=== PATIENT | female | born 1945 | race Caucasian/White ===

== ENCOUNTER → 2017-09-02 15:34 | Outpatient (CLI) | payer MEDICARE | END | disposition home or self-care (01) | LOC: D.MAMMO 11:00 | DX: Z12.31 Encounter for screening mammogram for malignant neoplasm of breast (principal); M81.0 Age-related osteoporosis without current pathological fracture ==

== ENCOUNTER 2017-12-18 23:23 | Emergency (ER) | payer MEDICARE | END 2017-12-19 00:52 | disposition home or self-care (01) | LOC: D.ER 23:23 | DX: S39.012A Strain of muscle, fascia and tendon of lower back, initial encounter (principal); W01.0XXA Fall on same level from slipping, tripping and stumbling without subsequent striking against object, initial encounter; Y93.89 Activity, other specified; Y92.019 Unspecified place in single-family (private) house as the place of occurrence of the external cause; G40.909 Epilepsy, unspecified, not intractable, without status epilepticus ==

== ENCOUNTER 2017-12-20 16:01 | Emergency (ER) | payer MEDICARE ==
[2017-12-20 16:31] LABS: BASOPHILS 0.2 % (0-2); HEMATOCRIT 32.9 % (36.0-48.0); HEMOGLOBIN 11.6 g/dL (12-16); IMMATURE GRANULOCYTES 0.2 % (0-5); LYMPHOCYTES 18.1 % (15-50); MCH 32.3 pg (26.0-34.0); MCHC 35.3 g/dL (31.0-37.0); MCV 91.6 fL (80.0-100.0); MEAN PLATELET VOLUME 8.9 fL (7.4-10.4); MONOCYTES 10.4 % (2-11); NEUTROPHILS 67.1 % (40-80); PLATELET COUNT 192 10x3/uL (130-400); RBC 3.59 10x6/uL (4.00-5.40); RDW 12.7 % (11.5-14.5); WBC 5.2 10x3/uL (4.8-10.8)
[2017-12-20 16:49] LABS: ALKALINE PHOSPHATASE 101 U/L (46-116); ALT (SGPT) 18 U/L (10-68); CALC OSMOLALITY 268 mosm/kg (275-300); CALCIUM 8.8 mg/dL (8.5-10.1); CARBON DIOXIDE 25.4 mmol/L (21.0-32.0); CHLORIDE - SERUM 100 mmol/L (98-107); CREATININE - SERUM 0.9 mg/dL (0.6-1.3); GLUCOSE 91 mg/dL (74-106); POTASSIUM - SERUM 4.1 mmol/L (3.5-5.1); PROTEIN - SERUM 7.1 g/dL (6.4-8.2); SODIUM 135 mmol/L (136-145); UREA NITROGEN 11 mg/dL (7-18); eGFR NON AFRICAN AMERICAN 65 mL/min (90-120)
[2017-12-20 17:01] LABS: CREATINE KINASE 82 UL (21-215); TROPONIN-I < 0.017 ng/mL (0.000-0.060)
== END 2017-12-20 18:10 | disposition home or self-care (01) ==
LOC: D.ER 16:01
PROVIDERS: Family Medicine
DX: R07.89 Other chest pain (principal); G40.909 Epilepsy, unspecified, not intractable, without status epilepticus

== ENCOUNTER → 2017-12-23 06:06 | Outpatient (CLI) | payer MEDICARE | END | disposition home or self-care (01) | LOC: D.MAMMO 06:06 | DX: R92.8 Other abnormal and inconclusive findings on diagnostic imaging of breast (principal) ==

== ENCOUNTER → 2018-03-03 08:15 | Outpatient (CLI) | payer MEDICARE ==
[~2018-03-03 08:15] MED LIST: CLARITIN 10 MG10 MG PO; KEPPRA500 MG; OMEPRAZOLE20 M1 PO; PHENOBARBITAL30 MG PO; SODIUM BICARBO325 MG; SYNTHROID25 MCG
== END | disposition home or self-care (01) ==
LOC: D.RAD 08:15
DX: R13.19 Other dysphagia (principal)

== ENCOUNTER 2018-04-23 13:50 | Emergency (ER) | payer MEDICARE ==
[~2018-04-23] VITALS: Ht 142.2 cm; Wt 46.8 kg
[2018-04-23 14:04] VITALS: Ht 142.2 cm; Wt 46.8 kg
[2018-04-23] MEDS ORDERED: PHENOBARBITAL30 MG PO (14:05)
[2018-04-23] MEDS ORDERED: KEPPRA500 MG (14:05)
[2018-04-23] MEDS ORDERED: OMEPRAZOLE20 M1 PO (14:06)
[2018-04-23] MEDS ORDERED: SYNTHROID25 MCG (14:06)
[2018-04-23] MEDS ORDERED: SODIUM BICARBO325 MG (14:06)
[2018-04-23] MEDS ORDERED: CLARITIN 10 MG10 MG PO (14:06)
[2018-04-23 15:21] LABS: BASOPHILS 0.5 % (0-2); EOSINOPHILS 4.7 % (0-7); HEMATOCRIT 36.6 % (36.0-48.0); HEMOGLOBIN 12.5 g/dL (12-16); IMMATURE GRANULOCYTES 0.3 % (0-5); LYMPHOCYTES 26.3 % (15-50); MCH 31.5 pg (26.0-34.0); MCHC 34.2 g/dL (31.0-37.0); MCV 92.2 fL (80.0-100.0); MEAN PLATELET VOLUME 8.7 fL (7.4-10.4); MONOCYTES 10.5 % (2-11); NEUTROPHILS 57.7 % (40-80); RBC 3.97 10x6/uL (4.00-5.40); RDW 13.6 % (11.5-14.5); WBC 6.4 10x3/uL (4.8-10.8)
[2018-04-23 15:27] LABS: PLATELET COUNT 293 10x3/uL (130-400)
[2018-04-23 15:31] LABS: ALKALINE PHOSPHATASE 98 U/L (46-116); ALT (SGPT) 21 U/L (10-68); CALC OSMOLALITY 262 mosm/kg (275-300); CALCIUM 8.3 mg/dL (8.5-10.1); CARBON DIOXIDE 28.9 mmol/L (21.0-32.0); CHLORIDE - SERUM 97 mmol/L (98-107); CREATININE - SERUM 0.7 mg/dL (0.6-1.3); POTASSIUM - SERUM 3.8 mmol/L (3.5-5.1); PROTEIN - SERUM 7.4 g/dL (6.4-8.2); SODIUM 133 mmol/L (136-145); UREA NITROGEN 9 mg/dL (7-18); eGFR NON AFRICAN AMERICAN 87 mL/min (90-120)
[2018-04-23 15:35] LABS: GLUCOSE 68 mg/dL (74-106)
[2018-04-23 16:24] VITALS: BP 122/72
[2018-04-23 16:27] LABS: APPEARANCE CLEAR (CLEAR); BILIRUBIN NEGATIVE (NEGATIVE); COLOR STRAW (YELLOW); GLUCOSE NEGATIVE (NEGATIVE); KETONE NEGATIVE (NEGATIVE); NITRITE POSITIVE (NEGATIVE); PROTEIN NEGATIVE (NEGATIVE); UROBILINOGEN NORMAL (NORMAL)
[2018-04-23 16:29] LABS: RED CELLS - URINE 0-5 /hpf (0-5)
[2018-04-23 16:30] LABS: BACTERIA MANY /hpf (NONE SEEN)
== END 2018-04-23 16:24 | disposition home or self-care (01) ==
LOC: D.ER 13:50
PROVIDERS: Emergency Medicine
DX: S00.93XA Contusion of unspecified part of head, initial encounter (principal); W18.30XA Fall on same level, unspecified, initial encounter; Y93.89 Activity, other specified; Y92.22 Religious institution as the place of occurrence of the external cause; G40.909 Epilepsy, unspecified, not intractable, without status epilepticus

== ENCOUNTER 2019-01-31 15:26 | Emergency (ER) | payer MEDICARE, MEDICAID ==
[~2019-01-31] VITALS: Ht 142.2 cm; Wt 45.0 kg
[2019-01-31 15:29] VITALS: Ht 142.2 cm; Wt 45.0 kg
[2019-01-31 15:55] LABS: BASOPHILS 0.2 % (0-2); EOSINOPHILS 1.1 % (0-7); HEMATOCRIT 36.7 % (36.0-48.0); HEMOGLOBIN 12.7 g/dL (12-16); IMMATURE GRANULOCYTES 1.5 % (0-5); LYMPHOCYTES 16.2 % (15-50); MCH 31.7 pg (26.0-34.0); MCHC 34.6 g/dL (31.0-37.0); MCV 91.5 fL (80.0-100.0); MEAN PLATELET VOLUME 8.7 fL (7.4-10.4); MONOCYTES 6.4 % (2-11); NEUTROPHILS 74.6 % (40-80); RBC 4.01 10x6/uL (4.00-5.40); RDW 13.4 % (11.5-14.5); WBC 8.2 10x3/uL (4.8-10.8)
[2019-01-31 15:56] LABS: PLATELET COUNT 223 10x3/uL (130-400)
[2019-01-31 16:18] LABS: ALBUMIN 3.1 g/dL (3.4-5.0); ALKALINE PHOSPHATASE 109 U/L (46-116); ALT (SGPT) 38 U/L (10-68); BILIRUBIN - TOTAL 0.25 mg/dL (0.2-1.3); CALC OSMOLALITY 272 mosm/kg (275-300); CALCIUM 8.1 mg/dL (8.5-10.1); CARBON DIOXIDE 28.4 mmol/L (21.0-32.0); CHLORIDE - SERUM 102 mmol/L (98-107); CREATININE - SERUM 0.8 mg/dL (0.6-1.3); GLUCOSE 98 mg/dL (74-106); POTASSIUM - SERUM 3.9 mmol/L (3.5-5.1); PROTEIN - SERUM 7.3 g/dL (6.4-8.2); SODIUM 137 mmol/L (136-145); UREA NITROGEN 11 mg/dL (7-18); eGFR NON AFRICAN AMERICAN 75 mL/min (90-120)
[2019-01-31 16:29] LABS: INR 1.13 (0.85-1.17)
[2019-01-31 16:30] LABS: CKMB 2.2 U/L (0.0-3.6); CREATINE KINASE 128 UL (21-215)
[2019-01-31 16:34] LABS: TROPONIN-I < 0.017 ng/mL (0.000-0.060)
[2019-01-31 19:43] VITALS: BP 138/68
[2019-02-06 10:49] VITALS: Ht 142.2 cm; Wt 45.0 kg
== END 2019-01-31 19:32 | disposition home or self-care (01) ==
LOC: D.ER 15:26
PROVIDERS: Family Medicine
DX: S22.039A Unspecified fracture of third thoracic vertebra, initial encounter for closed fracture (principal); S22.049A Unspecified fracture of fourth thoracic vertebra, initial encounter for closed fracture; W18.30XA Fall on same level, unspecified, initial encounter; Y92.511 Restaurant or cafe as the place of occurrence of the external cause

== ENCOUNTER 2019-02-02 17:55 | Inpatient (IN) | payer MEDICARE, MEDICAID ==
[~2019-02-02] VITALS: Ht 142.2 cm; Wt 52.3 kg
[2019-02-02 18:21] LABS: BASOPHILS 0.3 % (0-2); EOSINOPHILS 2.9 % (0-7); HEMOGLOBIN 12.7 g/dL (12-16); IMMATURE GRANULOCYTES 0.3 % (0-5); LYMPHOCYTES 10.6 % (15-50); MCH 31.8 pg (26.0-34.0); MCHC 35.3 g/dL (31.0-37.0); MEAN PLATELET VOLUME 9.6 fL (7.4-10.4); MONOCYTES 6.6 % (2-11); NEUTROPHILS 79.3 % (40-80); RDW 13.3 % (11.5-14.5); WBC 10.8 10x3/uL (4.8-10.8)
[2019-02-02 18:29] LABS: PLATELET COUNT 147 10x3/uL (130-400)
[2019-02-02 18:35] LABS: APPEARANCE CLEAR (CLEAR); COLOR DK YELLOW (YELLOW); GLUCOSE NEGATIVE (NEGATIVE); KETONE NEGATIVE (NEGATIVE); NITRITE POSITIVE (NEGATIVE); PROTEIN 1+ mg/dL (NEGATIVE)
[2019-02-02 18:36] LABS: BACTERIA MANY /hpf (NONE SEEN); BILIRUBIN NEGATIVE (NEGATIVE); EPITHELIAL CELLS 0-5 /hpf (0-5); RED CELLS - URINE 0-5 /hpf (0-5); UROBILINOGEN NORMAL (NORMAL); WHITE CELLS - URINE 25-50 /hpf (0-5)
[2019-02-02 18:49] LABS: APTT 29.5 SECONDS (22.8-39.4); INR 1.14 (0.85-1.17); PROTIME 14.1 SECONDS (11.6-15.0)
[2019-02-02 19:00] LABS: ALBUMIN 2.8 g/dL (3.4-5.0); ALKALINE PHOSPHATASE 92 U/L (46-116); ALT (SGPT) 35 U/L (10-68); BILIRUBIN - TOTAL 0.64 mg/dL (0.2-1.3); CALC OSMOLALITY 274 mosm/kg (275-300); CALCIUM 8.1 mg/dL (8.5-10.1); CARBON DIOXIDE 26.6 mmol/L (21.0-32.0); CHLORIDE - SERUM 101 mmol/L (98-107); CREATININE - SERUM 0.9 mg/dL (0.6-1.3); GLUCOSE 118 mg/dL (74-106); POTASSIUM - SERUM 4.3 mmol/L (3.5-5.1); PROTEIN - SERUM 7.2 g/dL (6.4-8.2); SODIUM 135 mmol/L (136-145); UREA NITROGEN 23 mg/dL (7-18); eGFR NON AFRICAN AMERICAN 65 mL/min (90-120)
[2019-02-02 19:12] LABS: CKMB 0.9 U/L (0.0-3.6); CREATINE KINASE 178 UL (21-215); PHENOBARBITAL 41.6 ug/mL (15.0-40.0); TROPONIN-I 0.054 ng/mL (0.000-0.060)
--- NOTE | 2019-02-02 21:30 | NUR ---
PT ARRIVED TO THE FLOOR. PT VERY LETHARGIC DOES NOT RESPOND TO VERBAL STIMULI. DOES RESPOND TO PAIN. NATHALIA ALARM PLACED. FALL PRECAUTIONS ON. WILL CONTINUE PLAN OF CARE. CALL LIGHT IN REACH. BED LOWERED AND LOCKED. BED RAILS UP X3.
[2019-02-02 23:33] VITALS: BP 93/52; BMI 23.6
--- NOTE | 2019-02-02 23:48 | NUR ---
RN NOTE: ADMISSION ASSESSMENT COMPLETE. PT TOO LETHARGIC TO ANSWER QUESTIONS AT THIS TIME... UNABLE TO DO SUICIDE SCREENING.
[2019-02-03 01:15] VITALS: BP 98/53
[2019-02-03 05:10] VITALS: BP 106/59
[2019-02-03 05:47] LABS: BASOPHILS 0.2 % (0-2); EOSINOPHILS 5.1 % (0-7); HEMATOCRIT 31.5 % (36.0-48.0); HEMOGLOBIN 10.6 g/dL (12-16); IMMATURE GRANULOCYTES 0.2 % (0-5); MCH 30.6 pg (26.0-34.0); MCHC 33.7 g/dL (31.0-37.0); MEAN PLATELET VOLUME 9.8 fL (7.4-10.4); MONOCYTES 9.6 % (2-11); NEUTROPHILS 69.9 % (40-80); PLATELET COUNT 138 10x3/uL (130-400); RBC 3.46 10x6/uL (4.00-5.40); RDW 13.4 % (11.5-14.5); WBC 8.1 10x3/uL (4.8-10.8)
[2019-02-03 06:03] LABS: ALBUMIN 2.3 g/dL (3.4-5.0); ALKALINE PHOSPHATASE 81 U/L (46-116); ALT (SGPT) 32 U/L (10-68); BILIRUBIN - TOTAL 0.52 mg/dL (0.2-1.3); CALC OSMOLALITY 273 mosm/kg (275-300); CALCIUM 7.3 mg/dL (8.5-10.1); CARBON DIOXIDE 25.5 mmol/L (21.0-32.0); CHLORIDE - SERUM 104 mmol/L (98-107); CREATININE - SERUM 0.7 mg/dL (0.6-1.3); GLUCOSE 97 mg/dL (74-106); MAGNESIUM - SERUM 1.9 mg/dL (1.8-2.4); POTASSIUM - SERUM 4.2 mmol/L (3.5-5.1); PROTEIN - SERUM 6.2 g/dL (6.4-8.2); SODIUM 136 mmol/L (136-145); UREA NITROGEN 18 mg/dL (7-18); eGFR NON AFRICAN AMERICAN 87 mL/min (90-120)
[2019-02-03 09:09] VITALS: BP 117/42
[2019-02-03 12:48] VITALS: BMI 23.5
[2019-02-03 13:16] VITALS: BP 196/46
[2019-02-03 14:13] LABS: % SATURATION 24 % (15-55); IRON 37 ug/dl (35-150); TOTAL IRON BIND CAPACITY 154 ug/dl (260-445); UNSAT IRON BIND CAPACITY 117 ug/dl (150-375)
[2019-02-03 16:43] VITALS: BP 110/62
[2019-02-03 19:56] VITALS: BP 110/53
--- NOTE | 2019-02-03 22:24 | NUR ---
PT ALERT AND ORIENTED. INCONTINENT OF BOWEL AND BLADDER. LINEN CHANGE PERFORMED. PT DENIES FURTHER NEEDS. LT AND RT AC IV'S THAT ARE SALINE LOCKED. RT WRIST PERIPHERAL PATENT. HAS CALL LIGHT IN HAND. DENIES FURTHER NEEDS AT THIS TIME.
[2019-02-04] VITALS: BP 111/58
[2019-02-04 04:54] VITALS: BP 116/64
[2019-02-04 06:29] LABS: BASOPHILS 0.2 % (0-2); EOSINOPHILS 2.3 % (0-7); HEMATOCRIT 32.1 % (36.0-48.0); HEMOGLOBIN 11.2 g/dL (12-16); IMMATURE GRANULOCYTES 0.3 % (0-5); MCH 31.5 pg (26.0-34.0); MCHC 34.9 g/dL (31.0-37.0); MCV 90.4 fL (80.0-100.0); MEAN PLATELET VOLUME 9.8 fL (7.4-10.4); MONOCYTES 8.9 % (2-11); NEUTROPHILS 77.3 % (40-80); PLATELET COUNT 145 10x3/uL (130-400); RBC 3.55 10x6/uL (4.00-5.40); RDW 13.2 % (11.5-14.5); WBC 9.2 10x3/uL (4.8-10.8)
[2019-02-04 07:01] LABS: ALBUMIN 2.1 g/dL (3.4-5.0); ALKALINE PHOSPHATASE 87 U/L (46-116); BILIRUBIN - TOTAL 0.63 mg/dL (0.2-1.3); CARBON DIOXIDE 20.4 mmol/L (21.0-32.0); CHLORIDE - SERUM 102 mmol/L (98-107); CREATININE - SERUM 0.6 mg/dL (0.6-1.3); GLUCOSE 104 mg/dL (74-106); MAGNESIUM - SERUM 1.8 mg/dL (1.8-2.4); POTASSIUM - SERUM 3.8 mmol/L (3.5-5.1); PROTEIN - SERUM 5.6 g/dL (6.4-8.2); SODIUM 134 mmol/L (136-145); eGFR NON AFRICAN AMERICAN > 90 mL/min (90-120)
[2019-02-04 07:02] LABS: ALT (SGPT) 64 U/L (10-68); CALC OSMOLALITY 266 mosm/kg (275-300); UREA NITROGEN 11 mg/dL (7-18)
[2019-02-04 07:47] VITALS: BP 92/62
--- NOTE | 2019-02-04 09:57 | NUR ---
ALERT AND ORIENTED X3. PATIENT IS ON FALL PRECAUTIONS AND CONTACT ISOLATION. MAX ASSSIT WITH TRANSFERS X1. O2 2L N/C. LUNGS CTA. DENIES ANY PAIN OR DISCOMFORT AT THIS TIME. ENCOURAGED TO USE CALL LIGHT FOR ASSIST.
[2019-02-04 13:06] VITALS: BP 103/60
[2019-02-04] MEDS ORDERED: SODIUM BICARBO650 MG PO (16:46)
[2019-02-04 17:10] VITALS: BP 122/62
[2019-02-04] MEDS ORDERED: KEPPRA250 MG PO (17:13)
[2019-02-04] MEDS ORDERED: PHENOBARBITAL97.2 MG PO (17:14)
[2019-02-04] MEDS ORDERED: SYNTHROID50 MCG PO (17:14)
--- NOTE | 2019-02-04 19:00 | NUR ---
PT IS ALERT AND ORIENTED X 2 . PT HAS INTERMITTENT CONFUSION. INCONTINENT AT TIMES BUT ASKS FOR BED ESPARZA SOMETIMES. RT AND LT AC IV BOTH SALINE LOCKED. LEFT WRIST IV THAT IS PATENT AND INFUSING NS WITH ABX. DENIES PAIN OR DISCOMFORT. FALL PRECAUTIONS AND CONTACT ISOLATION PRECAUTIONS BOTH IN PLACE. PATIENT DOES NOT APPEAR IN ANY DISTRESS. USES CALL LIGHT APPROPRIATELY AND VERBALIZES TO USE CALL LIGHT WHEN IN NEED OF ASSISTANCE. CONTINUE PLAN OF CARE.
[2019-02-04 20:32] VITALS: BP 123/69
[2019-02-05 01:42] VITALS: BP 122/64
--- NOTE | 2019-02-05 04:35 | NUR ---
I have reviewed this patient and I concur with the Shift Assessment completed by the Licensed Practical Nurse today this shift.
[2019-02-05 05:37] LABS: BASOPHILS 0.3 % (0-2); EOSINOPHILS 0.3 % (0-7); HEMATOCRIT 31.5 % (36.0-48.0); IMMATURE GRANULOCYTES 0.3 % (0-5); LYMPHOCYTES 4.6 % (15-50); MCH 31.3 pg (26.0-34.0); MCHC 34.9 g/dL (31.0-37.0); MCV 89.7 fL (80.0-100.0); MEAN PLATELET VOLUME 10.2 fL (7.4-10.4); MONOCYTES 7.8 % (2-11); NEUTROPHILS 86.7 % (40-80); PLATELET COUNT 191 10x3/uL (130-400); RBC 3.51 10x6/uL (4.00-5.40); RDW 13.3 % (11.5-14.5); WBC 11.7 10x3/uL (4.8-10.8)
[2019-02-05 06:09] LABS: ALBUMIN 2.2 g/dL (3.4-5.0); ALKALINE PHOSPHATASE 101 U/L (46-116); ALT (SGPT) 65 U/L (10-68); BILIRUBIN - TOTAL 1.02 mg/dL (0.2-1.3); CALC OSMOLALITY 274 mosm/kg (275-300); CALCIUM 7.6 mg/dL (8.5-10.1); CARBON DIOXIDE 21.2 mmol/L (21.0-32.0); CHLORIDE - SERUM 104 mmol/L (98-107); CREATININE - SERUM 0.7 mg/dL (0.6-1.3); GLUCOSE 112 mg/dL (74-106); MAGNESIUM - SERUM 1.8 mg/dL (1.8-2.4); POTASSIUM - SERUM 3.1 mmol/L (3.5-5.1); PROTEIN - SERUM 6.7 g/dL (6.4-8.2); SODIUM 138 mmol/L (136-145); UREA NITROGEN 7 mg/dL (7-18); eGFR NON AFRICAN AMERICAN 87 mL/min (90-120)
--- NOTE | 2019-02-05 06:34 | NUR ---
PT ATTEMPTING TO GET OUT OF BED SEVERAL TIMES IN NIGHT. DISORIENTED AND HAD TO REORIENT SEVERAL TIMES. ALL FALL PRECAUTIONS ARE IN PLACE. POTASSIUM LOW, TREATED PER PROTOCAL. CALL LIGHT IN HAND.
[2019-02-05 09:11] VITALS: BP 109/63
[2019-02-05 13:29] VITALS: BP 110/54
--- NOTE | 2019-02-05 15:43 | NUR ---
OT NOTE: PT UP IN CHAIR EATING. PT CONSUMED ONLY ABOUT 20% OF MEAL. PT IS ABLE TO FEED SELF, BUT REQUIRES ENCOURAGEMENT TO EAT JUST SMALL AMOUNT. STATES THAT SHE DOESNT WANT ANYMORE. BACK TO BED WITH MAX ASSIST FOR TRANSFER. MAX ASSIST WITH BED MOB PT HAD EPISODE OF DIARRHEA AND HAD TO BE CHANGED. MAX ASSIST TO REPOSITION IN BED. HANS OLIVER, OTR/L
--- NOTE | 2019-02-05 16:14 | MORECARE ---
CASE MANAGEMENT DISCHARGE SUMMARY PATIENT: JOYCE DEAN UNIT: [id number] ADM DATE: 02/02/19 AGE: 73 : 46 SEX: F ROOM/BED: D.2225 AUTHOR: MEAGHAN GARY PHYSICIAN: REFERRING PHYSICIAN: PETROS DUNHAM MD DATE OF SERVICE: 02/05/19 Discharge Plan Patient Name: JOYCE DEAN Facility: [facility]:[place] : 1945 Planned Disposition: Inpatient Rehab Anticipated Discharge Date: Discharge Date: Expected LOS: Initial Reviewer: [email or web address] Initial Review Date: 02/05/2019 Generated: 02/05/19 5:14 pm DCP- Discharge Planning Updated by [email or web address]: Brittaney Yu on 02/03/19 4:[address] Nurse reports frequent visitors from her presybeterian family, Roxann Witness today. Reportedly her presybeterian family and neighbors assist her and she ?? has no family. Patient was found down without air conditioning. Patient placed in temporary isolation until culture results return. DCP- Discharge Planning Updated by [email or web address]: Brittaney Yu on 02/03/19 4:[address] CM received CM consult for inpatient rehab. Patient with a temp of 102.7 pulse 96- 120, nasal oxygen increased to 4l/min from 1.5 liters as O2 sats fell this occurred this late afternoon. Reportedly the patient told MD she did not want rehab as she has a dog. Cultures pending. IV Levaquin q24hrs. Patient had 1 liter fld bolus. IVFS at 100/ cc/ hr then decrease to 75cc/hr. CM will f/u with referral. Patient Name: JOYCE DEAN Page [phone] at 1614 All edits/amendments must be made on the electronic document DICTATION DATE: 02/05/191613 ENAMEL MACHINE OPERATOR: JOSE 02/05/19 1614 RPT#: [id number] DC DATE: STATUS: ADM IN [facility] [address] [place] [address] END OF REPORT
--- NOTE | 2019-02-05 16:22 | MORECARE ---
CASE MANAGEMENT DISCHARGE SUMMARY PATIENT: JOYCE DEAN UNIT: [id number] ADM DATE: 02/02/19 AGE: 73 : 46 SEX: F ROOM/BED: D.2225 AUTHOR: COOKIE,DOC PHYSICIAN: REFERRING PHYSICIAN: PETROS DUNHAM MD DATE OF SERVICE: 02/05/19 Discharge Plan Patient Name: JOYCE DEAN Facility: [facility]:[place] : 1945 Planned Disposition: Inpatient Rehab Anticipated Discharge Date: Discharge Date: Expected LOS: Initial Reviewer: [email or web address] Initial Review Date: 02/05/2019 Generated: 02/05/19 5:22 pm DCP- Discharge Planning Updated by [email or web address]: Brittaney Yu on 02/03/19 4:[address] Nurse reports frequent visitors from her druze family, Roxann Booker today. Reportedly her druze family and neighbors assist her and she ?? has no family. Patient was found down without air conditioning. Patient placed in temporary isolation until culture results return. DCP- Discharge Planning Updated by [email or web address]: Brittaney Yu on 02/03/19 4:[address] CM received CM consult for inpatient rehab. Patient with a temp of 102.7 pulse 96- 120, nasal oxygen increased to 4l/min from 1.5 liters as O2 sats fell this occurred this late afternoon. Reportedly the patient told MD she did not want rehab as she has a dog. Cultures pending. IV Levaquin q24hrs. Patient had 1 liter fld bolus. IVFS at 100/ cc/ hr then decrease to 75cc/hr. CM will f/u with referral. DCPIA - Discharge Planning Initial Assessment Updated by [id number]: Melissa Moreno on 02/05/19 4:16 pm * Is the patient Alert and Oriented? Yes * How many steps to enter\exit or inside your home? 0/0 * PCP Dr. Flores Hirsch * [facility] [address] * Preadmission Environment Home Alone * ADLs Partial Dependent * Partial ADLs (Assistance needed) Ambulation * Equipment Walker * List name and contact numbers for known caregivers / representatives who currently or will assist patient after discharge: Best Kyle - Medical Directive - [phone] Kevin Everett - friend - [phone] Azam Carranza - [phone] Mechelle Palma - [phone] * Verbal permission to speak to the caregivers and representatives has been obtained from the patient. Yes * Community resources currently utilized None * Additional services required to return to the preadmission environment? Yes * Can the patient safely return to the preadmission environment? No * Has this patient been hospitalized within the prior 30 days at any hospital? No Last DP export: 02/05/19 3:14 pm Patient Name: JOYCE DEAN Page [id number] at 1622 All edits/amendments must be made on the electronic document DICTATION DATE: 02/05/191620 LUBRICATION EQUIPMENT SERVICER: JOSE 02/05/191620 RPT#: [id number] DC DATE: STATUS: ADM IN [facility] [address] [place] [address] END OF REPORT
--- NOTE | 2019-02-05 16:31 | MORECARE ---
CASE MANAGEMENT DISCHARGE SUMMARY PATIENT: JOYCE DEAN UNIT: [id number] ADM DATE: 02/02/19 AGE: 73 : 46 SEX: F ROOM/BED: D.2225 AUTHOR: COOKIE,DOC PHYSICIAN: REFERRING PHYSICIAN: PETROS DUNHAM MD DATE OF SERVICE: 02/05/19 Discharge Plan Patient Name: JOYCE DEAN Facility: [facility]:[place] : 1945 Planned Disposition: Inpatient Rehab Anticipated Discharge Date: Discharge Date: Expected LOS: Initial Reviewer: [email or web address] Initial Review Date: 02/05/2019 Generated: 02/05/19 5:31 pm Comments DCP- Discharge Planning Updated by [email or web address]: Melissa Moreno on 02/05/19 3:[address] Patient Name: JOYCE DEAN Admission Status: ER Accout number: [id number] Admission Date: 02-02-2019 : 1945 Admission Diagnosis: Attending: PETROS DUNHAM Current LOS: 3 Anticipated DC Date: Planned Disposition: Inpatient Rehab Primary Insurance: [employer] PPO MCR ADVANT Discharge Planning Comments: CM met with patient to discuss discharge planning, she is alone in the room. She answers most questions appropriately, however does have some confusion. She states her dog is "". I spoke with her friend over the phone that states her dog is fine and they are taking care of her dog (Azam). I informed her that she is very weak and does need physical therapy prior to returning home and she agrees. She states she has been in a rehab before, she is unable to recall the name of the rehab. When I read her the list, she thinks it was [facility] and rehab. She states she would like to stay here for rehab if her insurance will pay for it. I called her medical directive, Best Dimas, he did not answer. I called Kevin Everett, he states his father in law is her directive and would agree to rehab and sign admission papers if needed. I ordered a rehab screen. CM will continue to follow and assist with discharge planning/needs. Bridge Crane Operator: Melissa Moreno DCP- Discharge Planning Updated by [email or web address]: Brittaney Beys on 02/03/19 4:[address] Nurse reports frequent visitors from her anabaptist family, Arcenioh Witness today. Reportedly her anabaptist family and neighbors assist her and she ?? has no family. Patient was found down without air conditioning. Patient placed in temporary isolation until culture results return. DCP- Discharge Planning Updated by [email or web address]: Brittaneylaron Yu on 02/03/19 4:[address] CM received CM consult for inpatient rehab. Patient with a temp of 102.7 pulse 96- 120, nasal oxygen increased to 4l/min from 1.5 liters as O2 sats fell this occurred this late afternoon. Reportedly the patient told MD she did not want rehab as she has a dog. Cultures pending. IV Levaquin q24hrs. Patient had 1 liter fld bolus. IVFS at 100/ cc/ hr then decrease to 75cc/hr. CM will f/u with referral. DCPIA - Discharge Planning Initial Assessment Updated by [id number]: Melissa Moreno on 02/05/19 4:16 pm * Is the patient Alert and Oriented? Yes * How many steps to enter\\exit or inside your home? 0/0 * PCP Dr. Flores Hirsch * Pharmacy [facility] on [address] * Preadmission Environment Home Alone * ADLs Partial Dependent * Partial ADLs (Assistance needed) Ambulation * Equipment Walker * List name and contact numbers for known caregivers / representatives who currently or will assist patient after discharge: Best Kyle - Medical Directive - [phone] Kevin Everett - friend - [phone] Azam Carranza - [phone] Mechelle Palma - [phone] * Verbal permission to speak to the caregivers and representatives has been obtained from the patient. Yes * Community resources currently utilized None * Additional services required to return to the preadmission environment? Yes * Can the patient safely return to the preadmission environment? No * Has this patient been hospitalized within the prior 30 days at any hospital? No Last DP export: 02/05/19 3:22 pm Patient Name: JOYCE DEAN Page [id number] at 1631 All edits/amendments must be made on the electronic document DICTATION DATE: 02/05/191629 CUSTOMIZER: JOSE 02/05/19 163 RPT#: [id number] DC DATE: STATUS: ADM IN [facility] [address] [place] [address] END OF REPORT
--- NOTE | 2019-02-05 16:35 | NUR ---
Rehab Note- Acute Inpatient Rehab prescreen order received. The patient has [employer] insurance and will require a PreAuth prior to an acute inpatient rehab stay. Will begin the PreAuth process with [employer]. Thank you for this referral! Mariela Cisse RN CLinical Liaison, [facility] [place], [place] Rehab
[2019-02-05 17:30] VITALS: BP 106/76
--- NOTE | 2019-02-05 17:34 | NUR ---
OT NOTE: PT REQUIRED MAX A FOR BED MOBILITY TASKS. PT REQUIRED MAX/TOTAL A WITH HYGIENE TASKS. THANK YOU, INOCENTE WERNER
--- NOTE | 2019-02-05 20:00 | NUR ---
SPO2 IN THE 60s ON 2L. RESPIRATIONS 22-26. INCREASED O2, RT NOTIFIED. SPO2 IS 90-95% ON 13L. CONTINUOUS PULSE MONITORING APPLIED TO PT. WILL CONTINUE TO MONITOR.
[2019-02-05 21:13] VITALS: BP 108/54
--- NOTE | 2019-02-05 21:14 | NUR ---
PT APPEARED DYSPNEIC PLACED ON HFNC 13L HUMIDIFIED SPO2 94 ZERO CYANOSIS JAVIER APPLICATION WELL FAMILY AT BEDSIDE CONTINUOUS PULSE OXYMETRY ON
[2019-02-06] VITALS (13 sets, daily range): BP systolic 91–159; BP diastolic 39–78; Ht 142.2 cm; Wt 52.3 kg
--- NOTE | 2019-02-06 03:09 | NUR ---
I have reviewed this patient and I concur with the Shift Assessment completed by the Licensed Practical Nurse today this shift.
[2019-02-06 08:07] LABS: ALBUMIN 1.9 g/dL (3.4-5.0); ANION GAP 16.5 mmol/L (8-16); BILIRUBIN - TOTAL 0.7 mg/dL (0.2-1.3); CARBON DIOXIDE 19.5 mmol/L (21.0-32.0); PROTEIN - SERUM 5.4 g/dL (6.4-8.2)
[2019-02-06 08:09] LABS: CREATININE - SERUM 0.9 mg/dL (0.6-1.3)
[2019-02-06 08:14] LABS: CALCIUM 6.8 mg/dL (8.5-10.1)
--- NOTE | 2019-02-06 08:31 | NUR ---
PT IS RESTING IN BED WITH EYES CLOSED. RESPIRATIONS ARE EVEN AND LABORED. PT WITH NOTICABLE INCREASED WORK OF BREATHING. CONT PULSE OX SHOWS O2 SAT 83% FLUCTUATING TO 89%. RESPIRATORY CALLED TO ROOM. O2 VIA HIGH FLOW NC @ 15L HUMIDIFIED. PT INSTRUCTED TO DEEP BREATH AND COUGH. COUGH IS PRODUCTIVE AND CLEARED WITH DIFFICULTY. SUCTION USED TO ASSIST WITH PHLEGM REMOVAL. O2 SAT @ 89% VIA HFNC @ 15L. STUART BOSE PAGED TO NOTIFY. PT WITH CONT WORK OF BREATHING AT THIS TIME.
--- NOTE | 2019-02-06 09:00 | EC ---
PATIENT:JOYCE DEAN DATE OF SERVICE: 02/02/19 SEX: F MEDICAL RECORD: [id number] DATE OF : [birth year] LOCATION:[facility] [place] AGE OF PATIENT: 73 ADMISSION DATE: 02/02/19 REFERRING PHYSICIAN: INTERPRETING PHYSICIAN: RAINER POON MD ECHOCARDIOGRAM REPORT ECHO CHARGES 4 ECHO COMPLETE Date: 02/04/19 CLINICAL DIAGNOSIS: CHF ECHOCARDIOGRAPHIC MEASUREMENTS (adult normal given) AC root (d.<3.7cm) 2.6 cm LV Septum d (<1.2 cm> 1.1 cm Valve Excursion 1.7 cm LV Septum (systole) 1.2 cm Left Atria (s.<4.0cm> 2.9 cm LVPW d(<1.2cm) 0.9 cm RV (d.<2.3cm) 2.6 cm LVPW (sytole) 1.0 cm LV diastole(<5.6CM) 3.4 cm MV E-F(>70mm/sec) cm LV systole 2.8 cm LVOT Diameter 1.7 cm MV exc.(>10mm) cm Est.ejection fraction (50-75%) % DOPPLER: LVIT cm/sec A 76 cm/sec E 38 cm/sec LA cm/sec RVSP 53.6 mmHg LVOT 106 cm/sec AOP1/2T m/s Asc. Ao 144 cm/sec RVOT 113 cm/sec RA cm/sec PA 100 cm/sec AV Gradient Peak 8.3 mmHg AV Mean 4.8 mmHg AV Area 1.6 cm MV Gradient Peak 3.8 mmHg MV Mean 1.8 mmHg MV Area cm COMMENTS: Bundling Machine Operator: Jason [facility] Front Services Agent: 3 Dr. Fragoso TAPE# PACS Pericardial Effusion N DATE OF SERVICE: Adequate 2D, color flow, spectral Doppler, and M-Mode. No LVH. LV internal dimensions are normal. Wall motion is normal. EF is greater than or equal to 55%. Aortic valve is tricuspid. No evidence of stenosis by Doppler interrogation. Left atrium is normal. Mitral valve shows no prolapse. Trace MR. Right-sided chambers grossly normal. Trace TR. TRANSINT:[id number] Voice Confirmation ID: [id number] DOCUMENT ID: [id number] ECHOCARDIOGRAM REPORT [id number] JOYCE DENA RAINER POON MD at 0900 CC: [id number] DICTATION DATE: 02/05/19 0847 NECK CUTTER: 02/05/19 0949 ADM IN [place] [id number] [place] [id number]
[2019-02-06 09:02] LABS: BASOPHILS 0.3 % (0-2); EOSINOPHILS 1.2 % (0-7); HEMATOCRIT 30.1 % (36.0-48.0); HEMOGLOBIN 10.4 g/dL (12-16); IMMATURE GRANULOCYTES 0.4 % (0-5); LYMPHOCYTES 11.7 % (15-50); MCH 31.6 pg (26.0-34.0); MCHC 34.6 g/dL (31.0-37.0); MCV 91.5 fL (80.0-100.0); MONOCYTES 6.9 % (2-11); NEUTROPHILS 79.5 % (40-80); PLATELET COUNT 191 10x3/uL (130-400); RBC 3.29 10x6/uL (4.00-5.40); RDW 13.9 % (11.5-14.5); WBC 11.1 10x3/uL (4.8-10.8)
--- NOTE | 2019-02-06 12:53 | NUR ---
16 FR DAS CATHETER INSERTED USING STERILE TECHNIQUE. 900ML OF TEA COLORED URINE EMPTIED FROM CATHTER COLLECTION BAG UPON INSERTION. PT TOLERATED WELL. COMPLETE LINEN CHANGE COMPLETED. PT REPOSITIONED IN BED FOR COMFORT. PT ASSISTED WITH LUNCH TRAY. BED IS IN THE LOWEST POSITION. CALL LIGHT AND BEDSIDE TABLE ARE WITHIN REACH. SIDE RAILS X 2. NATHALIA ALARM IS ON AND WORKING. WILL CONT TO MONITOR.
--- NOTE | 2019-02-06 14:42 | NUR ---
NUTRITION F/U PT REMAINS IN ISOLATION. REG DIET WITH CONTINUED POOR PO INTAKE(~25%). MAY BENEFIT FROM TEMPORARY DOBHOFF TUBE FEEDS. RD FOLLOWING
--- NOTE | 2019-02-06 18:59 | NUR ---
PT CONT WITH INCREASED WORK OF BREATHING O2 SAT @ 89/90 ON 15L VIA NON REBREATHER MASK. DR HAGAN NOTIFIED OF PT STATUS. ORDERS RECD ARE BIPAP @ 07/05/80%. CONTACT RASHEED BOSE ABOUT PT DNR STATUS. ORDERS PLACED. RESPIRATORY NOTIFIED OF NEED FOR BIPAP MACHINE.
--- NOTE | 2019-02-06 19:40 | NUR ---
NEFTALY BOSE PAGED TO UPADATE ORDERS FROM DR HAGAN. ORDERS RECD TO CONTACT NOK OR PERSON TO NOTIFY. ALL CONTACT ATTEMPTS ARE UNSUCCESSFUL AND MESSAGES COULD NOT BE LEFT. WILL PASS TO AUTOMOBILE SERVICE WRITER NURSE TO CONT ATTEMPTS AT NOTIFYING TO DETERMINE RESIDENTIAL STATUS AND DNR PREFERENCE.
--- NOTE | 2019-02-06 19:45 | NUR ---
ENTERED ROOM IN RESPONSE TO BIPAP ALARM. PT IS SUPINE IN BED, ALERT, BUT CONFUSED. PT PULLED OFF MASK, SPO2 DECREASED TO 86%, MASK REAPPLIED. SPO2 BEGAN TO RISE. ATTEMPTED TO REORIENT PT, INFORMED TO KEEP MASK ON TO MAINTAIN OXYGEN. PT STOPPED ATTEMPTING TO PULL OFF MASK. WILL CONTINUE TO MONITOR.
--- NOTE | 2019-02-06 20:05 | NUR ---
NON-REBREATHER APPLIED WHILE PASSING MEDS. PT KEPT PULLING MASK DOWN. MEDS CRUSHED IN APPLESAUCE. PT TOLERATED WELL, BUT O2 BEGAN DROPPING DURING MED PASS. NON-REBREATHER APPLIED INBETWEEN BITES. O2 MAINTAINED, BUT PT KEPT ATTEMPTING TO PULL OFF MASK. ATTEMPTED TO REORIENT. BIPAP REAPPLIED. WILL MONITOR CLOSELY.
--- NOTE | 2019-02-06 20:50 | NUR ---
CALLED RETURNED FROM PTs EMERGENCY CONTACT, HANS BUSH. SHE STATED SHE IS UNAWARE OF PTs CODE STATUS AND WILL HAVE PTs POA CALL UNIT.
--- NOTE | 2019-02-06 21:00 | NUR ---
RECIEVED CALL FROM MARICEL VALADEZ. HE STATED HE IS UNAWARE OF CODE STATUS OF PT, BUT SHE SHOULD HAVE DPA PAPERS WITH HER, HE REPORTS HE IS LISTED HER HEALTH AGENT AND SUGGESTS SEARCHING PTs THINGS FOR PAPERWORK. HE, ALSO, LEFT HIS PHONE NUMBER FOR FURTHER QUESTIONS: [phone].
--- NOTE | 2019-02-06 21:50 | NUR ---
DR. HAGAN CALLED WITH ORDER FOR PT TO MOVE TO ICU AND BE INTUBATED.
--- NOTE | 2019-02-06 22:05 | NUR ---
PATIENT TRANSFERED TO ROOM 2310. MOVED OVER TO BED. IV INTACT X3. DAS INTACT. PATIENT HAS NRB IN PLACE CHANGED OVER TO BIPAP AT 65%. SPO2 QUICKLY INCREASED TO 100%. PATIENT PLACED IN RESTRAINTS TO PREVENT HER FROM PULLING MASK OFF. ASSESSMENT COMPLETE.
--- NOTE | 2019-02-06 22:20 | NUR ---
MASOUD SALAS CALLED FOR PT INTUBATION PER ER. ER PNYSICIAN HERE AND SPOKE WITH DR. HAGAN. DR. HAGAN WANTS ANESTHEIA CALLED FOR INTUBATION.
--- NOTE | 2019-02-06 22:35 | NUR ---
ANESTHESIA NOTIFIED OF INTUBATION. SPO2 99-100% ON BIPAP AT THIS TIME. WILL CONTINUE TO MONITOR.
--- NOTE | 2019-02-06 23:00 | NUR ---
HANS BUSH LISTED PERSON TO NOTIFY IN PTs CHART. INFORMED MS. BUSH OF PTs TRANSFER TO ICU.
--- NOTE | 2019-02-06 23:14 | NUR ---
ANESTHIA AT BEDSIDE. 2315 MEDS IN PER ANESTHIA. 2316 PT INTUBATED WITH 7.0 ETT AND 21 @ THE LIP. 2320 HR 113, SPO2 100%. LUNGS CTA WITH DIMISHED BASES.
[2019-02-07] VITALS (26 sets, daily range): BP systolic 85–142; BP diastolic 44–69
--- NOTE | 2019-02-07 00:06 | NUR ---
RADIOLOGY GROUP CALLED TO SPEAK WITH DR. HAGAN. PHONE NUMBER TAKEN AND DR. HAGAN NOTIFIED.
--- NOTE | 2019-02-07 00:12 | NUR ---
SPOKE WITH DR. MANZO FROM RADIOLOGY AND HE STATES ETT NEEDS TO BE PULLED BACK 4-[address] HAGAN NOTIFIED AT 0014 OF RADILOGY REPORT ORDERS RECEIVED TO PULL TUBE BACK 4-5 CM AND REDO CXR.
--- NOTE | 2019-02-07 01:45 | NUR ---
PLACED 20 GAUGE IV IN LEFT UPPER ARM, BLOOD RETURN NOTED, VANC INFUSING
[2019-02-07 05:06] LABS: BASOPHILS 0.1 % (0-2); EOSINOPHILS 1.6 % (0-7); HEMATOCRIT 28.9 % (36.0-48.0); HEMOGLOBIN 9.7 g/dL (12-16); IMMATURE GRANULOCYTES 0.3 % (0-5); MCH 31.1 pg (26.0-34.0); MCHC 33.6 g/dL (31.0-37.0); MCV 92.6 fL (80.0-100.0); MEAN PLATELET VOLUME 10.4 fL (7.4-10.4); MONOCYTES 5.4 % (2-11); NEUTROPHILS 82.6 % (40-80); PLATELET COUNT 203 10x3/uL (130-400); RBC 3.12 10x6/uL (4.00-5.40); RDW 14.1 % (11.5-14.5); WBC 10.9 10x3/uL (4.8-10.8)
[2019-02-07 05:54] LABS: ALBUMIN 1.9 g/dL (3.4-5.0); BILIRUBIN - TOTAL 0.72 mg/dL (0.2-1.3); CALCIUM 7.5 mg/dL (8.5-10.1); CREATININE - SERUM 0.9 mg/dL (0.6-1.3); MAGNESIUM - SERUM 2.2 mg/dL (1.8-2.4); POTASSIUM - SERUM 3.6 mmol/L (3.5-5.1); PROTEIN - SERUM 6.5 g/dL (6.4-8.2)
[2019-02-07 06:06] LABS: ANION GAP 14.9 mmol/L (8-16); CARBON DIOXIDE 24.7 mmol/L (21.0-32.0)
--- NOTE | 2019-02-07 07:00 | NUR ---
PATIENT ON VENT. OG TUBE. VSS. ASSESSMENT COMPLTED. VSS. WILL CONTINUE TO MONITOR.
--- NOTE | 2019-02-07 09:20 | NUR ---
DR HAGAN AT BEDSIDE. BRONCHOSCOPY PERFORMED. CONSENTS OBTAINED AND SIGNED. UPDATE GIVEN.
--- NOTE | 2019-02-07 11:00 | NUR ---
DR BRIONES AT BEDSIDE. UPDATE GIVEN. WILL CONTINUE TO MONITOR
--- NOTE | 2019-02-07 12:13 | NUR ---
CHG BATH GIVEN AT THIS TIME. PATIENT TURNED. AND COMPLETE LINEN CHANGE.
--- NOTE | 2019-02-07 12:39 | NUR ---
NUTRITION F/U CHART REVIEWED, PT NOW IN ICU ON VENT. IF TUBE FEEDS REQUIRED, RECOMMEND PULMOCARE 1)PULMOCARE @ 20 CC/HR 2)INCREASE SLOWLY TOLERATED TO GOAL RATE 35 CC/HR 3)50 CC H2O FLUSH Q [address] FOLLOWING
--- NOTE | 2019-02-07 13:00 | NUR ---
FRIENDS AT BEDSIDE. UPDATE GIVEN. PT HAD BOWEL MOVEMENT. LOW GRADE FEVER OF 99.9. PATIENT TURNED. HEELS PROPED. COCCYX DRESSING CHANGE. CAP ALL IV.
--- NOTE | 2019-02-07 13:20 | NUR ---
SPOKE AT LENGTH WITH JABARI (POA) ABOUT PT POC AND CODE STATUS, PT IS NOW A DNR, ISABEL LIVINGSTON RN WITNESS
--- NOTE | 2019-02-07 15:00 | NUR ---
PATIENT ON VENT. STABLE. FRIEND AT BEDSIDE AT THIS TIME. SPOKE WITH POA ABOUT PATIENTS WISHES. PATIENT WAS MADE DNR.
--- NOTE | 2019-02-07 17:00 | NUR ---
PATIENT TURNED. VSS. WILL CONTINUE TO MONITOR.
[2019-02-08] VITALS (24 sets, daily range): BP systolic 92–126; BP diastolic 44–69
[2019-02-08 04:10] LABS: HEMATOCRIT 23.9 % (36.0-48.0); HEMOGLOBIN 8.1 g/dL (12-16); MCH 31.2 pg (26.0-34.0); MCHC 33.9 g/dL (31.0-37.0); MCV 91.9 fL (80.0-100.0); MEAN PLATELET VOLUME 10.4 fL (7.4-10.4); PLATELET COUNT 221 10x3/uL (130-400); RDW 14.1 % (11.5-14.5); WBC 8.4 10x3/uL (4.8-10.8)
[2019-02-08 04:25] LABS: ALBUMIN 1.6 g/dL (3.4-5.0); ANION GAP 14.4 mmol/L (8-16); BILIRUBIN - TOTAL 0.71 mg/dL (0.2-1.3); CALCIUM 7.2 mg/dL (8.5-10.1); CARBON DIOXIDE 24.7 mmol/L (21.0-32.0); CREATININE - SERUM 0.9 mg/dL (0.6-1.3); POTASSIUM - SERUM 3.1 mmol/L (3.5-5.1); PROTEIN - SERUM 5.5 g/dL (6.4-8.2)
[2019-02-08 05:13] LABS: EOSINOPHILS 3 % (0-7); LYMPHOCYTES 14 % (15-50); MONOCYTES 1 % (2-11); NEUTROPHILS 82 % (40-80); PLATELET ESTIMATE NORMAL
--- NOTE | 2019-02-08 07:00 | NUR ---
report recieved from qasim. shift assessment completed. vss. will continue to monitor
--- NOTE | 2019-02-08 09:00 | NUR ---
DR HAGAN AT BEDSIDE. CPAP TRIALS. UPDATE GIVEN. WILL CONTINUE TO MONITOR
--- NOTE | 2019-02-08 11:50 | NUR ---
PATIENT OFF CPAP TRAILS. PATIENT WAS TACHYCARDIC. PATIENT BACK ON ASSIST CONTROL
--- NOTE | 2019-02-08 12:21 | NUR ---
DR BRIONES AT BEDSIDE. UPDATE GIVEN. WILL CONTINUE TO MONITOR
--- NOTE | 2019-02-08 13:00 | NUR ---
family at bedside. dr mathias at bedside. will continue to monitor. vss.
--- NOTE | 2019-02-08 15:22 | NUR ---
BATH GIVEN AT THIS TIME.
--- NOTE | 2019-02-08 16:46 | NUR ---
CHG BATH GIVEN AT THIS TIME. COMPLETE LINEN CHANGE. PATIENT TURNED. WILL CONTINUE TO MONITOR. CALL LIGHT WITHIN REACH. LUNGS CTA. PATIENT ALERT. AFEBRILE. BED LOW AND LOCKED. LOW INT SUCTION.
--- NOTE | 2019-02-08 19:00 | NUR ---
ASSESSMENT COMPLETED PER FLOWSHEETS. PT ON VENT OPEN EYES WITH VOICES, FOLLOWS COMMANDS. ST ON CM. PPP. CONT TO MONITOR.
[2019-02-08 19:08] LABS: ACID FAST SMEAR Negative (()); AFB SPECIMEN PROCESSING Concentration (())
--- NOTE | 2019-02-08 21:00 | NUR ---
NO VISITORS AT THIS TIME. REPOSITIONED AND MOUTH CARE PER VAP DONE. PILLOWS IN USE FOR SUPPORT. HOB UP. SIDE RAILS UP. CPOC.
--- NOTE | 2019-02-08 23:00 | NUR ---
REASSESSMENT COMPLETED PER FLOWSHEETS. PT ON VENT WITHOUT DISTRESS. NO ACUTE CHANGES NOTED IN PT'S CONDITION. VSS. CPOC.
[2019-02-09] VITALS (24 sets, daily range): BP systolic 98–134; BP diastolic 53–78
--- NOTE | 2019-02-09 01:00 | NUR ---
PT ON VENT RESTING QUIETLY AT THIS TIME. SR ON CM. NO ACUTE CHANGES NOTED. CPOC.
[2019-02-09 03:30] LABS: BASOPHILS 0.3 % (0-2); EOSINOPHILS 4.6 % (0-7); HEMATOCRIT 24.6 % (36.0-48.0); HEMOGLOBIN 8.5 g/dL (12-16); IMMATURE GRANULOCYTES 0.4 % (0-5); LYMPHOCYTES 13.9 % (15-50); MCH 32.1 pg (26.0-34.0); MCHC 34.6 g/dL (31.0-37.0); MCV 92.8 fL (80.0-100.0); MONOCYTES 5.9 % (2-11); NEUTROPHILS 74.9 % (40-80); PLATELET COUNT 234 10x3/uL (130-400); RBC 2.65 10x6/uL (4.00-5.40); RDW 14.2 % (11.5-14.5)
[2019-02-09 03:46] LABS: ALBUMIN 1.6 g/dL (3.4-5.0); ANION GAP 14.6 mmol/L (8-16); BILIRUBIN - TOTAL 0.63 mg/dL (0.2-1.3); CALCIUM 7.5 mg/dL (8.5-10.1); CARBON DIOXIDE 23.1 mmol/L (21.0-32.0); CREATININE - SERUM 0.8 mg/dL (0.6-1.3); POTASSIUM - SERUM 3.7 mmol/L (3.5-5.1); PROTEIN - SERUM 5.6 g/dL (6.4-8.2)
--- NOTE | 2019-02-09 07:00 | NUR ---
REPORT RECIEVED FROM HALLE LR. PATIENT RESTING. RESPIRATORY THERAPY AT BEDSIDE. WILL BEGIN CPAP TRIALS. VSS. WILL CONTINUE TO MONITOR. BED LOW AND LOCKED. PATIENT AROUSES TO VOICES. CALLLIGHT WITHIN REACH. PATIENT TURNED. ASSESSMENT COMPLETED. ALL LINES LABELED AND CAPPED.
--- NOTE | 2019-02-09 08:21 | NUR ---
Nutrition follow-up: Pt remains intubated; weaning today possible per respiratory There is no NGT/OGT in place due to swelling in throat. Labs reviewed If pt unable to extubated and diet advance today, recommend starting ProcalAmine PPN @ 75 ml/hr. RDN following.
--- NOTE | 2019-02-09 08:25 | NUR ---
Nutrition follow-up: Pt starting CPAP trials Remains NPO Labs reviewed Will need to start nutrition support if pt unable to extubate today and diet begin. RDN following.
--- NOTE | 2019-02-09 09:00 | NUR ---
PATIENT ALERT AND AWAKE. CALM AND COOPERATIVE. CPAP TRIALS. PT TURNED. WILL CONTINUE TO MONITOR. DR HAGAN AT BEDSIDE.. UPDATE GIVEN
--- NOTE | 2019-02-09 11:00 | NUR ---
FAMILY AT BEDSIDE
--- NOTE | 2019-02-09 11:45 | NUR ---
PATIENT EXTUBATED BIPAP 40%
--- NOTE | 2019-02-09 13:00 | NUR ---
PATIENT RESTING ON BIPAP. 40% 25 RR. BED LOW AND LOCKED. VANC DC. CALL LIGHT WITHIN REACH. WILL CONTINUE TO MONITOR
[2019-02-09 14:09] LABS: FUNGUS STAIN Final report (())
--- NOTE | 2019-02-09 15:00 | NUR ---
PATIENT ON BIPAP. BATH GIVEN AT THIS TIME. COMPLETE LINEN CHANGE. WILL CONTINUE TO MONITOR.
--- NOTE | 2019-02-09 17:00 | NUR ---
DAS CARE PROVIDED. VSS. WILL CONTINUE TO MONITOR. BED LOW AND LOCKED. PATIENT TOLERATING NASAL CANNULA. ALL LINES LABELED AND CAPPED.
--- NOTE | 2019-02-09 20:00 | NUR ---
RECEIVED PATIENT IN BED, AWAKE AND ALERT. MONITORS CONNECTED TO PATIENT WITH ALARMS SET. VSS. NO ACUTE DISTRESS OBSERVED. CALL LIGHT IN REACH
[2019-02-10] VITALS (24 sets, daily range): BP systolic 111–149; BP diastolic 43–91
[2019-02-10 06:51] LABS: BASOPHILS 0.3 % (0-2); EOSINOPHILS 5.2 % (0-7); HEMATOCRIT 28.9 % (36.0-48.0); HEMOGLOBIN 9.6 g/dL (12-16); IMMATURE GRANULOCYTES 0.3 % (0-5); LYMPHOCYTES 8.8 % (15-50); MCH 31.1 pg (26.0-34.0); MCHC 33.2 g/dL (31.0-37.0); MCV 93.5 fL (80.0-100.0); MEAN PLATELET VOLUME 9.9 fL (7.4-10.4); MONOCYTES 6.2 % (2-11); NEUTROPHILS 79.2 % (40-80); RBC 3.09 10x6/uL (4.00-5.40); RDW 14.2 % (11.5-14.5); WBC 9.2 10x3/uL (4.8-10.8)
[2019-02-10 06:53] LABS: PLATELET COUNT 305 10x3/uL (130-400)
[2019-02-10 07:08] LABS: ALBUMIN 1.7 g/dL (3.4-5.0); ALKALINE PHOSPHATASE 123 U/L (46-116); ALT (SGPT) 68 U/L (10-68); BILIRUBIN - TOTAL 0.45 mg/dL (0.2-1.3); CALC OSMOLALITY 292 mosm/kg (275-300); CALCIUM 8.1 mg/dL (8.5-10.1); CARBON DIOXIDE 20.4 mmol/L (21.0-32.0); CHLORIDE - SERUM 111 mmol/L (98-107); CREATININE - SERUM 0.7 mg/dL (0.6-1.3); GLUCOSE 82 mg/dL (74-106); POTASSIUM - SERUM 3.7 mmol/L (3.5-5.1); PROTEIN - SERUM 6.2 g/dL (6.4-8.2); SODIUM 147 mmol/L (136-145); UREA NITROGEN 18 mg/dL (7-18); eGFR NON AFRICAN AMERICAN 87 mL/min (90-120)
--- NOTE | 2019-02-10 07:30 | NUR ---
AWAKES EASILY TO VERBAL STIMULI SKIN WARM AND DRY ON NC AT 3 LITERS. DOES ANSWER ANY QUESTIONS, BUT DOES OBEY COMMANDS. SKIN WARM AND DRY. REPOSITIONED IN BED. IV LEFT UPPER ARM INFUSING WITH NS AT 10 ML HOUR.NO REDNESS OR SWELLING. DAS CATH PATENT AND DRAINING CLEAR YELLOW URINE. MONITOR SR. NO DISTRESS. NAPPING AT INTERVALS.
--- NOTE | 2019-02-10 08:00 | NUR ---
PLACED ON BIPAP PER R.T. PATIENT TOLERATING WELL AT THIS TIME
--- NOTE | 2019-02-10 09:00 | NUR ---
NEEDS FREQ REMINDER NOT TO TAKE BIPAP OFF. ASSIST WITH ADJUST BIPAP MASK FOR COMFORT. NAPPING AT INTERVALS.
--- NOTE | 2019-02-10 10:15 | NUR ---
DR. BRIONES HERE UPDATE PROVIDED.
--- NOTE | 2019-02-10 12:00 | NUR ---
VISITORS HERE. STATES THEY ARE HER FAMILY. ONLY FAMILY LIVES IN [place].
--- NOTE | 2019-02-10 14:35 | NUR ---
DR. JC HERE UPDATE GIVEN. ORDERS RECEIVED. ORAL CARE DONE
--- NOTE | 2019-02-10 14:38 | NUR ---
RESTING WELL ON NC AT 3 LITERS. RESP. RATE STILL FAST. NO DISTRESS
--- NOTE | 2019-02-10 16:00 | NUR ---
ON BIPAP, MORE AWAKE NOW. PULLING ON BIPAP AT TIMES. ENCOURAGE NOT TOO. REPOSITIONED. ASSESSMENT DOCUMENTED. PATIENT NAPPING AT INTERVALS. SEVERAL VISITORS HERE TODAY. SPEECH THERAPY TO KENNETH IN AM
--- NOTE | 2019-02-10 18:00 | NUR ---
PLACED BACK ON BIPAP FOR PULSE OX IN UPPER 70"S WHILE ON 3 LITERS NC. PATIENT AWAKE AND ALERT. NOT HAPPY ABOUT BEING ON BIPAP
--- NOTE | 2019-02-10 19:00 | NUR ---
PT IN BED AWAKE WITH BIPAP IN PLACE. NPO PER ORDERS. CALL LIGHT IN REACH. BED LOW. IV INTACT AND PATIEN WITH PROCAL AT 50 ML/HR PER ORDERS. F/C IN PLACE AND PATEN WITH CLEAR YELLOW URIN TO BAG. SCD'S IN PLACE. EDEMA NOTED TO BILATER ARMS.
--- NOTE | 2019-02-10 21:00 | NUR ---
PT. IN BED CALL LIGHT IN REACH SCD'S IN PLACE. BATH GIVEN HAIR WAHSED. BED CHANGED . PT RESTING WITH BIPAP IN PLACE, NAPPING, AFTER BATH. F/C IN PLACE AND INTACT WITH FOLLY CARE GIVEN. NO S/S OF DISTRESS.
--- NOTE | 2019-02-10 23:00 | NUR ---
PATIENT IN BED WITH BIPAP IN PLACE. PATIEN IS NPO. SCD'S IN PLACE, CALL LIGHT IN REACH. IV TO LEFT HAND IN PLACE AND PATEN WITH PROCAL AT 50 PER ORDERS. CONTIUES TO PULL AT BIPAP TO REMOVE EDUCATED FOR NEED OF BIPAP. CONFUSION NOTED.
[2019-02-11] VITALS (24 sets, daily range): BP systolic 116–159; BP diastolic 57–93
--- NOTE | 2019-02-11 01:41 | NUR ---
PATIENT ASLEEP RESP UNLABORED BIPAP IN PLACE. NO S/S OF DISTRESS. CALL LIGHT IN REACH. CHECKED OFTEN FOR NEEDS AND SAFETY.
--- NOTE | 2019-02-11 02:05 | NUR ---
RESTING IN BED NO S/S OF DISTRESS BIPAP IN PLACE, BUT PULLS AT IT OFTEN. F/C IN PLACE ,SCD'S IN PLACE CALL LIGHT IN REACH. CHECKED OFTEN FOR NEEDS AND SAFETY.
--- NOTE | 2019-02-11 03:15 | NUR ---
RESTING TRUNED TO LEFT SIDE NO NEEDS NO S/S OF DISTRESS PULLS AT LINES OFTEN . CHECKED FOR NEEDS AND SAFETY OFTEN. CALL LIGHT IN REACH BED LOW.
[2019-02-11 03:43] LABS: ALBUMIN 1.6 g/dL (3.4-5.0); ALKALINE PHOSPHATASE 117 U/L (46-116); ALT (SGPT) 56 U/L (10-68); BILIRUBIN - TOTAL 0.47 mg/dL (0.2-1.3); CALC OSMOLALITY 295 mosm/kg (275-300); CALCIUM 8.1 mg/dL (8.5-10.1); CARBON DIOXIDE 22.2 mmol/L (21.0-32.0); CHLORIDE - SERUM 113 mmol/L (98-107); CREATININE - SERUM 0.6 mg/dL (0.6-1.3); GLUCOSE 103 mg/dL (74-106); SODIUM 148 mmol/L (136-145); UREA NITROGEN 18 mg/dL (7-18); eGFR NON AFRICAN AMERICAN > 90 mL/min (90-120)
[2019-02-11 03:53] LABS: POTASSIUM - SERUM 4.7 mmol/L (3.5-5.1)
--- NOTE | 2019-02-11 04:16 | NUR ---
RESTING NO NEEDS NOTED NO S/S OF DISTRESS.
--- NOTE | 2019-02-11 05:06 | NUR ---
RESTING NO S/S OF DISTRESS BIPAP IN PLACE, CALL LIGHT IN REACH
--- NOTE | 2019-02-11 05:11 | NUR ---
RESTING IN BED NO S/S OF DISTRESS. CALL LIGHT IN REACH. CALL L IGHT IN REACH.
--- NOTE | 2019-02-11 06:05 | NUR ---
SLEEPING WITH NO S/S OF DISTRESS CALL LIGHT IN REACH.
--- NOTE | 2019-02-11 06:59 | NUR ---
PATEINT EYES CLOSED BIPAP ON NO DISTRESS. RESP FAST AND REGULAR RR 27.
--- NOTE | 2019-02-11 08:00 | NUR ---
RESTING COMFORTABLY ON BI PAP. NO DISTRESS. AWAKES TO STIMULATION. SLOW TO RESPOND. MONITOR SR WITH FREQ PAC.
[2019-02-11 08:05] LABS: BASOPHILS 0.5 % (0-2); EOSINOPHILS 4.4 % (0-7); HEMATOCRIT 26.7 % (36.0-48.0); HEMOGLOBIN 9.2 g/dL (12-16); IMMATURE GRANULOCYTES 1.3 % (0-5); LYMPHOCYTES 10.9 % (15-50); MCH 31.3 pg (26.0-34.0); MCHC 34.5 g/dL (31.0-37.0); MEAN PLATELET VOLUME 10.4 fL (7.4-10.4); MONOCYTES 5.1 % (2-11); NEUTROPHILS 77.8 % (40-80); PLATELET COUNT 287 10x3/uL (130-400); RBC 2.94 10x6/uL (4.00-5.40); RDW 13.9 % (11.5-14.5)
[2019-02-11 08:06] LABS: MCV 90.8 fL (80.0-100.0); WBC 12.7 10x3/uL (4.8-10.8)
--- NOTE | 2019-02-11 09:59 | NUR ---
HERE UPDATE GIVEN. STATES OPENS EYES BUT DOES NOT FOLLOW HER IN THE ROOM.
--- NOTE | 2019-02-11 10:00 | NUR ---
NO CHANGE. STILL ON BIPAP. RESTING COMFORTABLY.
--- NOTE | 2019-02-11 12:00 | NUR ---
NO CHANGE RESTING COMFORTABLY ON BIPAP. VISITORS FROM [facility] HERE. UPDATE GIVEN. HAND DATA PROCESSING SYSTEMS PROJECT PLANNER EQUAL AND STRONG. AWAKES TO STIMULATION. STILL SLOW TO RESPOND. IV PATENT. MONITOR SR WITH FREQ. PAC. DAS PATENT DRAINING CLEAR YELLOW URINE. NO DISTRESS.
--- NOTE | 2019-02-11 14:00 | NUR ---
IV RESTARTED IN LEFT FOREARM WITH 20G X SEVERAL STICKS FROM SEVERAL NURSES. PATEINT TOLERATED WELL. PROCALAMINE INFUSING AT 50 ML HOUR.
--- NOTE | 2019-02-11 16:00 | NUR ---
ON NC 3 LITERS. ALERT. TRIES TO TALK IN WHISPER. OBEYS COMMANDS. SPEECH THERAPY HERE TO DO EVAL. VISITORS FROM [facility] HERE.
--- NOTE | 2019-02-11 18:33 | NUR ---
EYES CLOSED RESTING COMFORTABLY ON 3 L NC. NO DISTRESS. MONITOR SR WITH OCC PAC. AWAKES EASILY TO STIMULATION
--- NOTE | 2019-02-11 20:24 | NUR ---
RECIEVED REPORT. PT RESTING QUIETLY EYES CLOSED. PT WAKES TO VERBAL STIMULI. RESP EVEN AND UNLABORED. O2 ON 2L VIA NC. DAS INTACT. IV INTACT. NO DISTRESS NOTED. WCTM
--- NOTE | 2019-02-11 21:56 | NUR ---
CHECKED ON PT. ASKED PT IF SHE NEEDED ANYTHING AND SHE MOUTHED "WATER" THIS NURSE EDUCATED PT SHE COULD NOT HAVE ANYTHING BY MOUTH. DID ORAL CARE WITH THE MOUTH SWABS AND APPLIED MOUTH MOISTURIZER. PT WHISPERED THAT WAS MUCH BETTER. DENIES FURTHER NEEDS AT THIS TIME. CL IN REACH. WCTM.
[2019-02-12] VITALS (16 sets, daily range): BP systolic 128–155; BP diastolic 46–89
--- NOTE | 2019-02-12 00:08 | NUR ---
CHECKED ON PT. PT COMPLAINING OF SORENESS TO CHEST AND BACK. REPOSITIONED PT FORM LEFT SIDE TO RIGHT. PT SHOOK HEAD YES WHEN ASKED IF SHE FELT BETTER AFTER REPOSITIONING. MORPHINE GIVEN PER SEP. PT WHISPERED SHE WAS IN PAIN. ASKED PT IF SHE WOULD LIKE PAIN MEDS AND SHE WHISPERED "YES". WILL CONTINUE TO MONITOR. CL IN REACH.
--- NOTE | 2019-02-12 01:52 | NUR ---
PT RESTING QUIETLY. CL IN REACH. NO DISTRESS NOTED. EYES CLOSED. RESP EVEN AND UNLABORED. WILL CONTINUE TO MONITOR.
--- NOTE | 2019-02-12 04:00 | NUR ---
PT REFUSED CHG DURING THE NIGHT. CAN ANSWER QUESTION WITH SHAKING OF THE HEAD YES OR NO.
--- NOTE | 2019-02-12 04:00 | NUR ---
PT RESTING QUIETLY. CL IN REACH. NO DISTRESS NOTED. CPOC RESP EVEN AND UNLABORED.
[2019-02-12 04:14] LABS: BASOPHILS 0.2 % (0-2); EOSINOPHILS 5.7 % (0-7); HEMOGLOBIN 10.4 g/dL (12-16); IMMATURE GRANULOCYTES 0.4 % (0-5); LYMPHOCYTES 10.3 % (15-50); MCHC 33.5 g/dL (31.0-37.0); MCV 92.5 fL (80.0-100.0); NEUTROPHILS 78.4 % (40-80); PLATELET COUNT 293 10x3/uL (130-400); RBC 3.35 10x6/uL (4.00-5.40); RDW 14.2 % (11.5-14.5); WBC 11.3 10x3/uL (4.8-10.8)
[2019-02-12 04:26] LABS: ALBUMIN 1.7 g/dL (3.4-5.0); ALKALINE PHOSPHATASE 138 U/L (46-116); ALT (SGPT) 51 U/L (10-68); BILIRUBIN - TOTAL 0.35 mg/dL (0.2-1.3); CALC OSMOLALITY 290 mosm/kg (275-300); CHLORIDE - SERUM 108 mmol/L (98-107); CREATININE - SERUM 0.6 mg/dL (0.6-1.3); GLUCOSE 110 mg/dL (74-106); PROTEIN - SERUM 6.4 g/dL (6.4-8.2); SODIUM 145 mmol/L (136-145); UREA NITROGEN 15 mg/dL (7-18); eGFR NON AFRICAN AMERICAN > 90 mL/min (90-120)
[2019-02-12 04:29] LABS: POTASSIUM - SERUM 3.2 mmol/L (3.5-5.1)
--- NOTE | 2019-02-12 05:20 | NUR ---
WENT TO HANG POTASSIUM DUE TO AM LABS SHOWING POTASSIUM BEING 3.2. WHEN SPIKING BAG THIS NURSE NOTICED IV WAS INFILTRATED. BE RICHEY ATTEMPTED TWICE TO GET IV, NOT SUCCESSFULL. WILL CONTINUE TO MONITOR. ANOTHER NURSE IS GOING TO ATTEMPT IV. WCTM CL IN REACH
--- NOTE | 2019-02-12 06:32 | NUR ---
IV STARTED IN R WRIST 20GUAGE. AFTER 2 ATTEMPTS. IV POTASSIUM STARTED ALONG WITH THE NS AND PROCALAMINE PT WAS PREVIOUSLY ON. WCTM
--- NOTE | 2019-02-12 07:06 | NUR ---
PATIENT IS ALERT AND ORIENTED TO SELF AND PLACE. REPORT RECIEVED FROM WILLI DOMINGUEZ. PATIENT ON 3L NC. PATIENT TURNED. BILATERAL UPPER EXTREMITY SWELLING. ASSESSMENT COMPLETED AT THIS TIME. VSS. WILL CONTINUE TO MONITOR. CALL LIGHT WITHIN REACH. BED LOW AND LOCKED.
--- NOTE | 2019-02-12 07:29 | NUR ---
I have reviewed this patient and I concur with the Shift Assessment completed by the Licensed Practical Nurse today this shift.
--- NOTE | 2019-02-12 09:00 | NUR ---
PATIENT RESTING. VSS. WILL CONTINUE TO MONITOR
--- NOTE | 2019-02-12 09:20 | NUR ---
NUTRITION F/U PT REMAINS NPO PER SPEECH REC'S. PROCALAMINE AT 50 CC/HR. WILL MONITOR DIET ADVANCEMENT, PT PROGRESS. PT MAY BENEFIT FROM PEG TUBE IF UNABLE TO TOLERATE PO. RD FOLLOWING
--- NOTE | 2019-02-12 11:30 | NUR ---
DR DUNHAM AT BEDSIDE. UPDATE GIVEN.
--- NOTE | 2019-02-12 12:02 | NUR ---
PHYSICAL THERAPY AT BEDSIDE.
--- NOTE | 2019-02-12 14:00 | NUR ---
SPOKE TO DR DUNHAM AND ALINE. UPDATE GIVEN.
--- NOTE | 2019-02-12 15:00 | NUR ---
SPEECH AT BEDSIDE. SWALLOW EVAL UPDATE
--- NOTE | 2019-02-12 18:00 | NUR ---
GAVE REPORT TO CLAUDINE LR.
--- NOTE | 2019-02-12 19:30 | NUR ---
PREVIOUS NOTE WRONG PT NOT IN DAILISIS.. PT AWAKE AND ALERT WITH SCD IN PLACE ONLINE JOURNALIST NEEDED LCTA SKIN WARM AND DRY BED IS LOW AND LOCKED. CALL LIGHT IS IN REACH
--- NOTE | 2019-02-12 19:30 | NUR ---
REMAINS IN DIALISIS
--- NOTE | 2019-02-12 19:57 | NUR ---
ATTEMPTED TO USE INSINTIVESPIROMETER ON PT ...PT MADE NO EFFERT TO SEAL AND BREATH IN ALL SO ATTAched manager council AT THIS TIME
--- NOTE | 2019-02-12 22:48 | NUR ---
PERFORMED ORAL CARE AND MOISTENED MOUTH WITH SWABS
[2019-02-13 00:18] VITALS: BP 126/45
[2019-02-13 04:00] VITALS: BP 123/88
--- NOTE | 2019-02-13 04:13 | NUR ---
PT O2 SAT DOWN TO 78 WITH O2 AT 5L NC PT IS AWAKE SKIN WARM AND DRY ABLE TO HEAR AIR MOVEMENT RESP CALLED AND I REQUESTED THEY PUT HER ON HER BIPAP
--- NOTE | 2019-02-13 04:20 | NUR ---
PT QUICKLY UP TO 90% WITH BIPAP IN PLACE
[2019-02-13 06:02] LABS: ALKALINE PHOSPHATASE 68 U/L (46-116); BILIRUBIN - TOTAL 0.38 mg/dL (0.2-1.3); CARBON DIOXIDE 25.1 mmol/L (21.0-32.0); CHLORIDE - SERUM 109 mmol/L (98-107); CREATININE - SERUM 0.5 mg/dL (0.6-1.3); GLUCOSE 112 mg/dL (74-106); POTASSIUM - SERUM 4.5 mmol/L (3.5-5.1); SODIUM 141 mmol/L (136-145); eGFR NON AFRICAN AMERICAN > 90 mL/min (90-120)
[2019-02-13 06:38] LABS: BASOPHILS 0.3 % (0-2); EOSINOPHILS 4.8 % (0-7); HEMATOCRIT 32.3 % (36.0-48.0); IMMATURE GRANULOCYTES 0.8 % (0-5); LYMPHOCYTES 7.1 % (15-50); MCH 31.1 pg (26.0-34.0); MCHC 34.1 g/dL (31.0-37.0); MCV 91.2 fL (80.0-100.0); MEAN PLATELET VOLUME 10.3 fL (7.4-10.4); MONOCYTES 4.5 % (2-11); NEUTROPHILS 82.5 % (40-80); RBC 3.54 10x6/uL (4.00-5.40); RDW 13.8 % (11.5-14.5); WBC 13.2 10x3/uL (4.8-10.8)
[2019-02-13 06:48] LABS: PLATELET COUNT 221 10x3/uL (130-400)
[2019-02-13 06:50] LABS: ALBUMIN 0.8 g/dL (3.4-5.0); ALT (SGPT) 17 U/L (10-68); CALC OSMOLALITY 284 mosm/kg (275-300); PROTEIN - SERUM 3.4 g/dL (6.4-8.2); UREA NITROGEN 22 mg/dL (7-18)
[2019-02-13 06:51] LABS: CALCIUM 6.9 mg/dL (8.5-10.1)
--- NOTE | 2019-02-13 07:30 | NUR ---
A/A/OX1 TO NAME. ON BIPAP AT PRESENT TIME WITH SPO2 OF 91%. ASSESSMENT COMPLETED AND WILL CONTINUE POC. BED IN LOW POSITION AND CALL LIGHT IN REACH.
[2019-02-13 08:00] VITALS: BP 146/77
--- NOTE | 2019-02-13 08:51 | MORECARE ---
CASE MANAGEMENT DISCHARGE SUMMARY PATIENT: JOYCE DEAN UNIT: [id number] ADM DATE: 02/02/19 AGE: 73 : 46 SEX: F ROOM/BED: D.0360 AUTHOR: COOKIE,DOC PHYSICIAN: REFERRING PHYSICIAN: PETROS DUNHAM MD DATE OF SERVICE: 02/13/19 Discharge Plan Patient Name: JOYCE DEAN Facility: [facility]:[place] : 1945 Planned Disposition: Inpatient Rehab Anticipated Discharge Date: Discharge Date: Expected LOS: Initial Reviewer: [email or web address] Initial Review Date: 02/05/2019 Generated: 02/13/19 9:51 am DCP- Discharge Planning Updated by [id number]: Melissa Moreno on 02/05/19 3:[address] Patient Name: JOYCE DEAN Admission Status: ER Accout number: [id number] Admission Date: 02-02-2019 : 1945 Admission Diagnosis: Attending: PETROS DUNHAM Current LOS: 3 Anticipated DC Date: Planned Disposition: Inpatient Rehab Primary Insurance: [employer] CHOICE PPO MCR ADVANT Discharge Planning Comments: CM met with patient to discuss discharge planning, she is alone in the room. She answers most questions appropriately, however does have some confusion. She states her dog is "". I spoke with her friend over the phone that states her dog is fine and they are taking care of her dog (Azam). I informed her that she is very weak and does need physical therapy prior to returning home and she agrees. She states she has been in a rehab before, she is unable to recall the name of the rehab. When I read her the list, she thinks it was [facility] and rehab. She states she would like to stay here for rehab if her insurance will pay for it. I called her medical directive, Best Dimas, he did not answer. I called Kevin Everett, he states his father in law is her directive and would agree to rehab and sign admission papers if needed. I ordered a rehab screen. CM will continue to follow and assist with discharge planning/needs. Trimming Inspector: Melissa Moreno DCP- Discharge Planning Updated by [email or web address]: Brittaney Yu on 02/03/19 4:[address] Nurse reports frequent visitors from her spiritism family, Arcenioh Witness today. Reportedly her spiritism family and neighbors assist her and she ?? has no family. Patient was found down without air conditioning. Patient placed in temporary isolation until culture results return. DCP- Discharge Planning Updated by [id number]: Brittaney Beys on 02/03/19 4:[address] CM received CM consult for inpatient rehab. Patient with a temp of 102.7 pulse 96- 120, nasal oxygen increased to 4l/min from 1.5 liters as O2 sats fell this occurred this late afternoon. Reportedly the patient told MD she did not want rehab as she has a dog. Cultures pending. IV Levaquin q24hrs. Patient had 1 liter fld bolus. IVFS at 100/ cc/ hr then decrease to 75cc/hr. CM will f/u with referral. DCPIA - Discharge Planning Initial Assessment Updated by [id number]: Melissa Moreno on 02/05/19 4:16 pm * Is the patient Alert and Oriented? Yes * How many steps to enter\\exit or inside your home? 0/0 * PCP Dr. Flores Hirsch * Pharmacy [facility] on [address] * Preadmission Environment Home Alone * ADLs Partial Dependent * Partial ADLs (Assistance needed) Ambulation * Equipment Walker * List name and contact numbers for known caregivers / representatives who currently or will assist patient after discharge: Best Kyle - Medical Directive - [phone] Kevin Everett - friend - [phone] Azam Carranza - [phone] Mechelle Palma - [phone] * Verbal permission to speak to the caregivers and representatives has been obtained from the patient. Yes * Community resources currently utilized None * Additional services required to return to the preadmission environment? Yes * Can the patient safely return to the preadmission environment? No * Has this patient been hospitalized within the prior 30 days at any hospital? No Last DP export: 02/05/19 3:31 pm Patient Name: JOYCE DEAN Page 50095 at 0851 All edits/amendments must be made on the electronic document DICTATION DATE: 02/13/19849 TIMBER SETTER: JOSE 02/13/19849 RPT#: [id number] DC DATE: STATUS: ADM IN [facility] [address] [place] [address] END OF REPORT
--- NOTE | 2019-02-13 11:45 | NUR ---
PT APPEARS TO BE HAVING DIFFICULTY BREATHING SPO2 ON NC 02 AT 3L/M IS 64%. PLACED BACK ON BIPAP AND DR. MIRELES AND DR. DUNHAM BOTH HERE AND INFORMED WITH NO FURTHER ORDERS. PT IS DNR.
[2019-02-13 12:00] VITALS: BP 144/68
--- NOTE | 2019-02-13 14:16 | NUR ---
OT NOTE: NURSING REQUESTED TO HOLD THIS AFTERNOON SECONDARY TO LOW 02 SATS. HANS OLIVER, OTR/L
--- NOTE | 2019-02-13 14:57 | NUR ---
Nutrition follow-up: Pt NPO due to failed swallow eval ProcalAmine PPN increased to 75 ml/hr Labs reviewed Wt: 115# Recommend PEG tube placement and TF started due to procalamine ppn is not meeting estimated energy needs at this time. RDN following.
[2019-02-13 15:45] VITALS: BP 162/70
--- NOTE | 2019-02-13 16:08 | NUR ---
I have reviewed this patient and I concur with the Shift Assessment completed by the Licensed Practical Nurse today this shift.
--- NOTE | 2019-02-13 18:33 | NUR ---
REMAINS ON BIPAP WITH SPO2 OF 91%.
--- NOTE | 2019-02-13 18:58 | NUR ---
PT WAS ON BIPAP /, 65% SHE DOES NOT WANT TO WEAR THE BIPAP. I PLACED HER ON HFNC 8L PT SATS ARE 93% HR 115.
--- NOTE | 2019-02-13 19:25 | NUR ---
PT IS ON 3L NC EYES ARE OPEN TRYING TO SPEAJK BUT CAN NOT LUNGS SOUND CONJESTED POSSIBLY WITH RUBS SKIN WARM AND DRY DAS TO GRAVITY BED LOW AND LOCKED CALL LIGHT IS IN REACH.
--- NOTE | 2019-02-13 20:30 | NUR ---
EYES OPEN AND WATCHING ME IN ROOM EFFORTS MADE FOR COMFORT AND SWABED MOUTH
--- NOTE | 2019-02-13 20:48 | NUR ---
MONITOR SHOWS HR DOWN TO 37 PT IS NOT BREATHING AT THIS TIME WILL HONER DNR STATUS
--- NOTE | 2019-02-13 20:59 | NUR ---
TELEMETRY NOW SHOWS ASYSTOLE NO PULSE NO RESP FAMILY WERE CALLED WITH NO ANSWER WILL NOTIFY
--- NOTE | 2019-02-13 21:21 | NUR ---
ALL ATTEMPTS TO CONTACT YESICA LOGAN OKDOUG HAS FAILED I HAVE SPOKEN WITH HANS WHO IS LISTED BY PT A PERSON OF CONTACT SHE IS HERE AND TAKING POSESSION OF [employer]LL OFFERING INSTRUCT
--- NOTE | 2019-02-14 09:14 | MORECARE ---
CASE MANAGEMENT DISCHARGE SUMMARY PATIENT: JOYCE DEAN UNIT: [id number] ADM DATE: 02/02/19 AGE: 73 : 46 SEX: F ROOM/BED: D.7980 AUTHOR: COOKIEDOC PHYSICIAN: REFERRING PHYSICIAN: PETROS DUNHAM MD DATE OF SERVICE: 02/14/19 Discharge Plan Patient Name: JOYCE DEAN Facility: [facility]:[place] : 1945 Planned Disposition: Inpatient Rehab Anticipated Discharge Date: 02/14/19 Discharge Date: 02/13/2019 Expected LOS: 12 Initial Reviewer: [email or web address] Initial Review Date: 02/05/2019 Generated: 02/14/19 10:14 am DCP- Discharge Planning Updated by [email or web address]: Melissa Moreno on 02/05/19 3:[address] Patient Name: JOYCE DEAN Admission Status: ER Accout number: [id number] Admission Date: 02-02-2019 : 1945 Admission Diagnosis: Attending: PETROS DUNHAM Current LOS: 3 Anticipated DC Date: Planned Disposition: Inpatient Rehab Primary Insurance: [employer] CHOICE PPO MCR ADVANT Discharge Planning Comments: CM met with patient to discuss discharge planning, she is alone in the room. She answers most questions appropriately, however does have some confusion. She states her dog is "". I spoke with her friend over the phone that states her dog is fine and they are taking care of her dog (Azam). I informed her that she is very weak and does need physical therapy prior to returning home and she agrees. She states she has been in a rehab before, she is unable to recall the name of the rehab. When I read her the list, she thinks it was [facility] and rehab. She states she would like to stay here for rehab if her insurance will pay for it. I called her medical directive, Best Dimas, he did not answer. I called Kevin Karlos, he states his father in law is her directive and would agree to rehab and sign admission papers if needed. I ordered a rehab screen. CM will continue to follow and assist with discharge planning/needs. [employer] Consultant: Melissa Moreno DCP- Discharge Planning Updated by [id number]: Brittaney Beys on 02/03/19 4:[address] Nurse reports frequent visitors from her voodoo family, Roxann Witness today. Reportedly her voodoo family and neighbors assist her and she ?? has no family. Patient was found down without air conditioning. Patient placed in temporary isolation until culture results return. DCP- Discharge Planning Updated by [id number]: Brittaney Yu on 02/03/19 4:[address] CM received CM consult for inpatient rehab. Patient with a temp of 102.7 pulse 96- 120, nasal oxygen increased to 4l/min from 1.5 liters as O2 sats fell this occurred this late afternoon. Reportedly the patient told MD she did not want rehab as she has a dog. Cultures pending. IV Levaquin q24hrs. Patient had 1 liter fld bolus. IVFS at 100/ cc/ hr then decrease to 75cc/hr. CM will f/u with referral. DCPIA - Discharge Planning Initial Assessment Updated by [email or web address]: Melissa Moreno on 02/05/19 4:16 pm * Is the patient Alert and Oriented? Yes * How many steps to enter\\exit or inside your home? 0/0 * PCP Dr. Flores Hirsch * Pharmacy [facility] [address] * Preadmission Environment Home Alone * ADLs Partial Dependent * Partial ADLs (Assistance needed) Ambulation * Equipment Walker * List name and contact numbers for known caregivers / representatives who currently or will assist patient after discharge: Best Kyle - Medical Directive - [phone] Kevin Everett - friend - [phone] Azam Carranza - [phone] Mechelle Palma - [phone] * Verbal permission to speak to the caregivers and representatives has been obtained from the patient. Yes * Community resources currently utilized None * Additional services required to return to the preadmission environment? Yes * Can the patient safely return to the preadmission environment? No * Has this patient been hospitalized within the prior 30 days at any hospital? No Last DP export: 02/13/19 7:51 a Patient Name: JOYCE DEAN Page 19811 at 0914 All edits/amendments must be made on the electronic document DICTATION DATE: 02/14/19912 MANPOWER DEVELOPMENT ADVISOR: JOSE 02/14/19912 RPT#: [id number] DC DATE:02/13/19 STATUS: DIS IN [facility] [address] [place] [address] END OF REPORT
[2019-02-14 11:10] LABS: FUNGUS CULTURE RESULT 1 Candida albicans (()); FUNGUS MYCOLOGY CULTURE Preliminary report (())
== END 2019-02-13 21:30 | DRG 208 ==
LOC: D.ER 17:55 → D.MS 20:05 → D.ICU 02-06 22:23 → D.M2 02-12 18:20
PROVIDERS: Emergency Medicine; Family Medicine; ADMIT Internal Medicine Nephrology; ATTEND Internal Medicine Nephrology
PROC: 5A1945Z Respiratory Ventilation, 24-96 Consecutive Hours (ICD-10-PCS; principal; 2019-02-06)
PROC: 0BH17EZ Insertion of Endotracheal Airway into Trachea, Via Natural or Artificial Opening (ICD-10-PCS; 2019-02-06)
PROC: 0B9J7ZX Drainage of Left Lower Lung Lobe, Via Natural or Artificial Opening, Diagnostic (ICD-10-PCS; 2019-02-07)
PROC: 0B9C7ZX Drainage of Right Upper Lung Lobe, Via Natural or Artificial Opening, Diagnostic (ICD-10-PCS; 2019-02-07)
DX: J18.9 Pneumonia, unspecified organism (principal); J96.21 Acute and chronic respiratory failure with hypoxia; J96.22 Acute and chronic respiratory failure with hypercapnia; N39.0 Urinary tract infection, site not specified; S22.039A Unspecified fracture of third thoracic vertebra, initial encounter for closed fracture; E03.9 Hypothyroidism, unspecified; G40.909 Epilepsy, unspecified, not intractable, without status epilepticus; J84.10 Pulmonary fibrosis, unspecified; Z66 Do not resuscitate; R53.81 Other malaise; D64.9 Anemia, unspecified; B95.62 Methicillin resistant Staphylococcus aureus infection as the cause of diseases classified elsewhere